=== PATIENT | female | born 1965 | race African-American/Black ===

== ENCOUNTER 2016-11-02 15:07 | Emergency (ER) | payer OTHER ==
[~2016-11-02] VITALS: Ht 162.6 cm; Wt 90.7 kg
[~2016-11-02 15:07] MED LIST: ALBUTEROL0.09 MG/A1 INH; AMOXIL500 MG PO; BACTRIM DS 8001 TAB PO; BENZONATATE200 MG PO; BLM PO; FLEXERIL10 MG PO; FLONASE120 SPRAY/ NASB; HYDRODIURIL 2525 MG PO; IBU800 MG PO; PEN-VK500 MG PO; PERCOCET 325 MG1 TA2 PO; PERCOCET 325 MG1 TAB PO; PULMICORT0.25 MG/1 INH/SOL; PYRIDIUM100 MG PO; ROBITUSSIN W/CO10 ML PO; TOPROL XL25 MG PO; TRAMADOL50 MG PO; TRIAMCINOL0.1 %/453 TOP; ZITHROMAX Z-PA250 MG PO
--- NOTE | 2016-11-02 17:17 | ED HAND/WRIST INJURY COMPLAINT ---
History of Present Illness General Chief Complaint: Hand or Wrist Injury Stated Complaint: L HAND NUMBNESS Source: patient Exam Limitations: no limitations Vital Signs & Intake/Output Vital Signs & Intake/Output Vital Signs Date Time Temp Pulse Resp B/P B/P Pulse O2 O2 Flow FiO2 Mean Ox Delivery Rate 11/02 1635 Room Air 11/02 1513 98.6 86 18 115/80 98 Room Air Allergies Coded Allergies: codeine (BAD HEADACHES PER PT 07/29/15) Reconcile Medications Albuterol Sulfate (Albuterol Sulfate Hfa) 0.09 MG/Actuation JAY 2 PUFF INH Q4- 6 PRN PRN SHORTNESS OF BREATH (Reported) 90 MCG PER PUFF Azithromycin (Zithromax Z-Serg) 250 MG TAB 1 PAC PO DAILY INFECTION USE DIRECTED Budesonide (Pulmicort) 0.25 MG/2 ML RES 1 Vial INH/MANINDER BID RESPIRATORY ( Reported) by nebulizer Fluticasone Propionate (Flonase) 120 SPRAY/BOT SPR 2 SPRAY NASB DAILY SINIS CONGESTION Hydrochlorothiazide (Hydrodiuril 25 MG Tab) 25 MG TABLET 1 TAB PO DAILY B/P ( Reported) Ibuprofen (Ibu) 800 MG TAB 1 TAB PO TID PAIN (Reported) LIDO/MAAL/CIERA (Magic Mouthwash) (Lido-Visc2% 30ML/[id number],MAALOX 120ml) 270 ML MUMTAZ 10 ML PO TID PRN Mouth Pain Metoprolol Succinate (Toprol XL) [address] 1 TAB PO DAILY B/P (Reported) Triage Note: 51 YO FEMALE TO ER C/O L HAND NUMBESS ON/OFF FOR 2-3 WEEKS. STATES SHE RECENTLY HAD A PARTIAL THYROIECTOMY IN AUGUST/2016 AND IS WONDERING IF IT HAS SOMETHING TO DO WITH THAT. Triage Nurses Notes Reviewed? yes HPI: 51F PMH RECENT THYROIDECTOMY ON SYNTHROID AND VITAMIN D SUPPLEMENTS PRESENTING WITH 2 WEEKS OF INTERMITTENT LEFT HAND AND FOREARM PARESTHESIA AND NUMBNESS OCCURING IN BRIEF 5-10 SECOND EPISODES SEVERAL TIMES PER DAY. PATIENT REPORTS HER INDEX FINGER IS NUMB AT THIS TIME. Past History Travel History Traveled to [place] past 21 day No Medical History Any Pertinent Medical History? 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 No Review of Systems Review of Systems Constitutional: Reports: see HPI. EENTM: Reports: see HPI. Respiratory: Reports: see HPI. Cardiovascular: Reports: see HPI. GI: Reports: see HPI. Genitourinary: Reports: see HPI. Musculoskeletal: Reports: see HPI. Skin: Reports: see HPI. Neurological/Psychological: Reports: see HPI. Hematologic/Endocrine: Reports: see HPI. Immunologic/Allergic: Reports: see HPI. All Other Systems: Reviewed and Negative Physical Exam Physical Exam General Appearance: well developed/nourished, no apparent distress, alert, awake Head: atraumatic, normal appearance Eyes: Bilateral: normal appearance. Neck: normal inspection, supple, full range of motion Cardiovascular/Respiratory: normal breath sounds, regular rate/rhythm Back: normal inspection, normal range of motion Hand Left: normal inspection, normal range of motion, no evidence of trauma, full strength and range of motion, full sensation, no wrist tenderness Hand Right: normal inspection, normal range of motion Progress Differential Diagnosis: abscess, cellulitis, contusion, compartment syndrome, dislocation, felon, fracture, gout, paronychia, septic arthritis, sprain, tenosynovitis Plan of Care: Orders Procedure Date/time Status Durable Medical Equipment 11/02 180 Active PHOSPHORUS 11/02 171 Complete MAGNESIUM 11/02 1716 Complete COMPREHENSIVE METABOLIC PANEL 11/02 1716 Complete CBC WITHOUT DIFFERENTIAL 11/02 1716 Complete Laboratory Tests 11/02/16 1724: Anion Gap 8, Estimated GFR > 60, BUN/Creatinine Ratio 18.9, Glucose 96, Calcium 9.6, Phosphorus 3.6, Magnesium 1.9, Total Bilirubin 0.4, AST 22, ALT 37, Alkaline Phosphatase 87, Total Protein 7.4, Albumin 4.4, Globulin 3.0, Albumin/ Globulin Ratio 1.5, CBC w Diff NO MAN DIFF REQ, RBC 4.51, MCV 89.2, MCH 29.8, RDW 14.2, MPV 7.5, Gran % 47.8, Lymphocytes % 42.2, Monocytes % 6.5, Eosinophils % 2.8, Basophils % 0.7, Absolute Granulocytes 2.9, Absolute Lymphocytes 2.5, Absolute Monocytes 0.4, Absolute Eosinophils 0.2, Absolute Basophils 0, PUBS MCHC 33.4 Departure Departure Time of Disposition: 1809 Disposition: HOME OR SELF CARE Condition: Stable Clinical Impression Primary Impression: Carpal tunnel syndrome of left wrist Referrals: TIANA WAGGONER APRN (PCP/Family) Additional Instructions: WEAR SPLINT DIRECTED. FOLLOW UP WITH YOUR EXPELLER WORKER. Departure Forms: Customer Survey General Discharge Information
[2016-11-02 17:35] LABS: ABSOLUTE BASOPHIL COUNT 0 /CUMM (0.0-0.2); ABSOLUTE EOSINOPHIL COUNT 0.2 /CUMM (0.0-0.7); ABSOLUTE GRANULOCYTE CT 2.9 /CUMM (1.4-6.5); ABSOLUTE LYMPH COUNT 2.5 /CUMM (1.2-3.4); ABSOLUTE MONOCYTE COUNT 0.4 /CUMM (0.10-0.60); BASOPHIL % 0.7 % (0.0-2.0); EOSINOPHIL % 2.8 % (0-5); GRANULOCYTE % 47.8 % (42.2-75.2); HEMATOCRIT 40.2 % (37-47); MEAN CORPUSCULAR HGB 29.8 PG (27.0-31.0); MEAN CORPUSCULAR HGB CONC 33.4 G/DL (33.0-37.0); MEAN CORPUSCULAR VOLUME 89.2 FL (81.0-99.0); MEAN PLATELET VOLUME 7.5 FL (7.4-10.4); PLATELET COUNT 415 /CUMM (130-400); RBC DISTRIBUTION WIDTH 14.2 % (11.5-14.5); RED BLOOD CELL CT 4.51 /CUMM (4.20-5.40)
[2016-11-02 18:20] VITALS: BP 120/60
== END 2016-11-02 18:33 ==
LOC: ERH 15:07
PROVIDERS: Internal Medicine
DX: G56.02 Carpal tunnel syndrome, left upper limb (principal)

== ENCOUNTER 2017-09-30 16:45 | Emergency (ER) | payer OTHER ==
[~2017-09-30] VITALS: Ht 162.6 cm; Wt 89.4 kg
--- NOTE | 2017-09-30 17:00 | ED DYSPNEA/ASTHMA COMPLAINT ---
History of Present Illness General Chief Complaint: General Adult Stated Complaint: ?SINUS INFECTION,ASTHMA FLARE UP,SORE THROAT Source: patient Exam Limitations: no limitations Vital Signs & Intake/Output Vital Signs & Intake/Output ED Intake and Output 10/01 0000 09/30 1200 Intake Total 120 Output Total Balance 120 Intake, Oral 120 Patient 197 lb Weight Weight Estimated Measurement Method Allergies Coded Allergies: codeine (BAD HEADACHES PER PT 07/29/15) Reconcile Medications Albuterol Sulfate (Albuterol Sulfate Hfa) 0.09 MG/Actuation JAY 2 PUFF INH Q4- 6 PRN PRN SHORTNESS OF BREATH (Reported) 90 MCG PER PUFF Albuterol Sulfate (Proventil Hfa) 90 MCG HFA.AER.AD 2 PUF INH Q4 COUGH Azithromycin (Zithromax Z-Serg) 250 MG TAB 1 PAC PO DAILY INFECTION USE DIRECTED Azithromycin (Zithromax) 250 MG TABLET 1 DP PO AD BRONCHITIS 2 the first day followed by 1 for days 2-5 Benzonatate 200 MG CAPSULE 1 CAP PO TIDPRN COUGH Budesonide (Pulmicort) 0.25 MG/2 ML RES 1 Vial INH/MANINDER BID RESPIRATORY ( Reported) by nebulizer Fluticasone Propionate (Flonase) 120 SPRAY/BOT SPR 2 SPRAY NASB DAILY SINIS CONGESTION Hydrochlorothiazide (Hydrodiuril 25 MG Tab) 25 MG TABLET 1 TAB PO DAILY B/P ( Reported) Ibuprofen (Ibu) 800 MG TAB 1 TAB PO TID PAIN (Reported) LIDO/MAAL/CIERA (Magic Mouthwash) (Lido-Visc2% 30ML/[id number],MAALOX 120ml) 270 ML MUMTAZ 10 ML PO TID PRN Mouth Pain Metoprolol Succinate (Toprol XL) [address] 1 TAB PO DAILY B/P (Reported) Prednisone (Deltasone) 20 MG TABLET 3 TAB PO DAILY BRONCHITIS Triage Note: RECEIVED 52 YO FEMALE WITH A HX OF ASTHMA, C/O CLEAR PRODUCTIVE COUGH, CONGESTION AND WHEEZING X ONE WEEK. SOME SHORTNES OF BREATH NOTED. Triage Nurses Notes Reviewed? yes Onset: Abrupt Duration: day(s):, constant Timing: recent history Severity: moderate, severe Activities at Onset: none HPI: 52-year-old female comes into the emergency room with complaints of associated cough wheezing some shortness of breath. She also reports some upper respiratory congestion and runny nose and body aches chills. Symptoms been going on for past few days. History of asthma. She also reports some pain in her right rib area. Nothing seems to make the symptoms better or worse. Denies any other associated symptoms. (Seferino Azevedo) Past History Travel History Traveled to [place] past 21 day No Medical History Any Pertinent Medical History? 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 No (Seferino Azevedo) Review of Systems Review of Systems Constitutional: Reports: see HPI. EENTM: Reports: see HPI. Respiratory: Reports: see HPI. Cardiovascular: Reports: see HPI. GI: Reports: no symptoms. Genitourinary: Reports: no symptoms. Musculoskeletal: Reports: see HPI. Skin: Reports: no symptoms. Neurological/Psychological: Reports: no symptoms. Hematologic/Endocrine: Reports: no symptoms. Immunologic/Allergic: Reports: no symptoms. All Other Systems: Reviewed and Negative (Seferino Azevedo) Physical Exam Physical Exam General Appearance: well developed/nourished, alert, awake, mild distress Head: atraumatic Eyes: Bilateral: normal appearance. Ears, Nose, Throat: normal ENT inspection, hearing grossly normal Neck: normal inspection Respiratory: no respiratory distress, decreased breath sounds, rhonchi, wheezing Cardiovascular: regular rate/rhythm Extremities: normal inspection Neurologic/Psych: awake, alert, oriented x 3 Skin: intact, normal color Core Measures ACS in differential dx? No CVA/TIA Diagnosis No Sepsis Present: No Sepsis Focused Exam Completed? No (Seferino Azevedo) Progress Differential Diagnosis: asthma, AMI, bronchitis, COPD, musculoskeletal pain, pulmonary embolism, pneumonia Plan of Care: Orders Procedure Date/time Status TROPONIN LEVEL 09/30 1658 Complete COMPREHENSIVE METABOLIC PANEL 09/30 165 Complete CBC WITHOUT DIFFERENTIAL 09/30 1658 Complete EKG 09/30 165 Active Laboratory Tests 09/30/17 1715: Anion Gap 12, Estimated GFR > 60, BUN/Creatinine Ratio 20.0, Glucose 98, Calcium 9.5, Total Bilirubin 0.6, AST 21, ALT 33, Alkaline Phosphatase 85, Troponin I < 0.01, Total Protein 7.3, Albumin 4.3, Globulin 3.0, Albumin/Globulin Ratio 1.4, CBC w Diff NO MAN DIFF REQ, RBC 4.56, MCV 87.6, MCH 29.9, MCHC 34.1, RDW 14.5, MPV 7.3 L, Gran % 54.0, Lymphocytes % 33.9, Monocytes % 7.1, Eosinophils % 4.5, Basophils % 0.5, Absolute Granulocytes 3.4, Absolute Lymphocytes 2.1, Absolute Monocytes 0.4, Absolute Eosinophils 0.3, Absolute Basophils 0 Diagnostic Imaging: Viewed by Me: Radiology Read. Discussed w/RAD: Radiology Read. Radiology Impression: PATIENT: ORLIN HUTSON PRESENT AGE: 52 PATIENT ACCOUNT NO: [id number] : 65 LOCATION: [facility] ORDERING PHYSICIAN: Seferino PITTS SERVICE DATE: 09/30/17 EXAM TYPE: RAD - XRY-CHEST XRAY, TWO VIEWS EXAMINATION: CHEST 2 VIEWS CLINICAL INFORMATION: Cough , shortness of breath, wheezing. COMPARISON: 06/12/2015. TECHNIQUE: PA and lateral views of the chest were obtained. FINDINGS: The cardiac silhouette is not enlarged. The mediastinal and hilar contours are unremarkable. There are neither pleural effusions nor pneumothoraces. There are no consolidations. The lungs are mildly hyperinflated. The osseous structures are unremarkable. IMPRESSION: No evidence for acute disease. Mild lung hyperinflation. DICTATED BY : Zhou Haskins MD DATE/TIME DICTATED:09/30/171729 AUTO RADIATOR MECHANIC:EDITH DATE/TIME TRANSCRIBED:09/30/171729 CONFIDENTIAL, DO NOT COPY WITHOUT APPROPRIATE AUTHORIZATION. <Electronically signed in Other Vendor System> SIGNED BY: Zhou Haskins MD 09/30/176 Initial ED EKG: normal sinus rhythm, rate (7070), nonspecific ST T wave chg Prior EKG: unchanged (NO SIGNIFICANT CHNAGES) Comments: 09/30/2017 7:28:21 PM Patient feels better after nebulizer treatment and prednisone. Symptoms are most consistent with bronchitis. Return if any concerns worsening symptoms. Understands and agrees with plan of care. Reevaluated multiple times. At this time no suspicion for pulmonary embolism. No tachycardia. No hemoptysis. No leg swelling. Low probability well's criteria. (Seferino Azevedo) Departure Departure Disposition: HOME OR SELF CARE Condition: Stable Clinical Impression Primary Impression: Bronchitis Referrals: Herminia Majano APRN (PCP/Family) Additional Instructions: Take prednisone, Z-Serg, Tessalon Perles, albuterol prescribed. Follow-up with her doctor. Return if any concerns worsening symptoms. Please go over all results of today's visit with your primary care doctor. Contact your primary care doctor to let them know you were here in the emergency room. There may be nonspecific findings which may not be related to your visit today here in the emergency room but may require further evaluation and chronic monitoring by your primary care doctor. If you had a laceration today the chance of foreign body always remains. You should follow-up with your primary care doctor for recheck in 3-5 days for a wound check. If you had an x-ray done there is a chance that a fracture could have been missed on initial read and you should follow-up with your primary care doctor for repeat x-rays if symptoms persist. If your blood pressure was elevated here in the emergency room please have rechecked by [facility] primary care doctor within the next 48. If you were prescribed a narcotic here in the emergency room or any type of controlled substances you're not allowed to drive while taking this medication or operate any type of heavy machinery. Narcotics can make you feel lightheaded dizziness nausea and can cause constipation. You may need to warp picker a stool softener. Thank you for choosing [facility] emergency room. Please return to the emergency room immediately if you have any other concerns worsening of symptoms. Departure Forms: Customer Survey General Discharge Information Prescriptions: Current Visit Scripts Prednisone (Deltasone) 3 TAB PO DAILY #12 TAB Azithromycin (Zithromax) 1 DP PO AD #6 TAB 2 the first day followed by 1 for days 2-5 Albuterol Sulfate (Proventil Hfa) 2 PUF INH Q4 #1 INHAL Benzonatate 1 CAP PO TIDPRN #30 CAP (Seferino Azevedo) PA/HRIS ADMINISTRATOR Co-Sign Statement Statement: ED Attending supervision documentation- [] I saw and evaluated the patient. I have also reviewed all the pertinent lab results and diagnostic results. I agree with the findings and the plan of care as documented in the PA's/HRIS ADMINISTRATOR's documentation. [X] I have reviewed the ED Record and agree with the PA's/HRIS ADMINISTRATOR's documentation. [] Additions or exceptions (if any) to the PAs/HRIS ADMINISTRATOR's note and plan are summarized below: [] (Malik MOBLEY,Sixto Fung) Critical Care Note Critical Care Note Critical Care Time: non-applicable (Fernando PITTS,Seferino)
[2017-09-30] MEDS ORDERED: PROVENTIL HFA6.7 GM INH (17:01)
[2017-09-30] MEDS ORDERED: ZITHROMAX250 M2 PO (17:01)
[2017-09-30] MEDS ORDERED: DELTASONE20 MG PO (17:01)
[2017-09-30] MEDS ORDERED: BENZONATATE200 M1 PO (17:01)
[2017-09-30 17:28] LABS: ABSOLUTE BASOPHIL COUNT 0 /CUMM (0.0-0.2); ABSOLUTE EOSINOPHIL COUNT 0.3 /CUMM (0.0-0.7); ABSOLUTE GRANULOCYTE CT 3.4 /CUMM (1.4-6.5); ABSOLUTE LYMPH COUNT 2.1 /CUMM (1.2-3.4); ABSOLUTE MONOCYTE COUNT 0.4 /CUMM (0.10-0.60); BASOPHIL % 0.5 % (0.0-2.0); EOSINOPHIL % 4.5 % (0-5); MEAN CORPUSCULAR HGB 29.9 PG (27.0-31.0); MEAN CORPUSCULAR HGB CONC 34.1 G/DL (33.0-37.0); MEAN CORPUSCULAR VOLUME 87.6 FL (81.0-99.0); MEAN PLATELET VOLUME 7.3 FL (7.4-10.4); PLATELET COUNT 432 /CUMM (130-400); RBC DISTRIBUTION WIDTH 14.5 % (11.5-14.5); RED BLOOD CELL CT 4.56 /CUMM (4.20-5.40); WHITE BLOOD CELL COUNT 6.3 /CUMM (4.8-10.8)
--- NOTE | 2017-09-30 17:34 | RADIOLOGY REPORT ---
EXAMINATION: CHEST 2 VIEWS CLINICAL INFORMATION: Cough, shortness of breath, wheezing. COMPARISON: 06/12/2015. TECHNIQUE: PA and lateral views of the chest were obtained. FINDINGS: The cardiac silhouette is not enlarged. The mediastinal and hilar contours are unremarkable. There are neither pleural effusions nor pneumothoraces. There are no consolidations. The lungs are mildly hyperinflated. The osseous structures are unremarkable. IMPRESSION: No evidence for acute disease. Mild lung hyperinflation.
[2017-09-30 18:22] VITALS: BP 122/78
== END 2017-09-30 18:50 ==
LOC: ERH 16:45
PROVIDERS: Physician Assistant Medical
DX: J40 Bronchitis, not specified as acute or chronic (principal); F17.210 Nicotine dependence, cigarettes, uncomplicated
CPT/HCPCS: 71046; 93005; 93010

== ENCOUNTER 2017-12-07 19:48 | Observation (INO) | payer OTHER ==
[~2017-12-07] VITALS: Ht 162.6 cm; Wt 81.6 kg
[~2017-12-07 19:48] MED LIST changes: -ALBUTEROL0.09 MG/A1 INH; +BENZONATATE200 M1 PO; +DELTASONE20 MG PO; +PROAIR HFA8.5 GM INH; +PROVENTIL HFA6.7 GM INH; -PULMICORT0.25 MG/1 INH/SOL; +PULMICORT0.25 MG/3 INH/SOL; -TOPROL XL25 MG PO; +TOPROL XL50 M1 PO; +ZITHROMAX250 M2 PO
--- NOTE | 2017-12-07 20:38 | ED GENERAL ADULT ---
History of Present Illness General Chief Complaint: General Adult Stated Complaint: EPISTAXIS, BLACK STOOL PER PT Source: patient Exam Limitations: no limitations Vital Signs & Intake/Output Vital Signs & Intake/Output Vital Signs Date Time Temp Pulse Resp B/P B/P Pulse O2 O2 Flow FiO2 Mean Ox Delivery Rate 12/08 0113 98.0 77 20 142/80 93 12/07 2255 96.2 86 18 129/76 98 Room Air 12/07 2137 81 139/69 12/07 1954 96.6 99 20 113/75 98 Room Air ED Intake and Output 12/08 0000 12/07 1200 Intake Total Output Total Balance Patient 180 lb Weight Allergies Coded Allergies: codeine (BAD HEADACHES PER PT 07/29/15) Reconcile Medications Albuterol Sulfate (Albuterol Sulfate Hfa) 0.09 MG/Actuation JAY 2 PUFF INH Q4- 6 PRN PRN SHORTNESS OF BREATH (Reported) 90 MCG PER PUFF Albuterol Sulfate (Proventil Hfa) 90 MCG HFA.AER.AD 2 PUF INH Q4 COUGH Azithromycin (Zithromax Z-Serg) 250 MG TAB 1 PAC PO DAILY INFECTION USE DIRECTED Azithromycin (Zithromax) 250 MG TABLET 1 DP PO AD BRONCHITIS 2 the first day followed by 1 for days 2-5 Benzonatate 200 MG CAPSULE 1 CAP PO TIDPRN COUGH Budesonide (Pulmicort) 0.25 MG/2 ML RES 1 Vial INH/MANINDER BID RESPIRATORY ( Reported) by nebulizer Fluticasone Propionate (Flonase) 120 SPRAY/BOT SPR 2 SPRAY NASB DAILY SINIS CONGESTION Hydrochlorothiazide (Hydrodiuril 25 MG Tab) 25 MG TABLET 1 TAB PO DAILY B/P ( Reported) Ibuprofen (Ibu) 800 MG TAB 1 TAB PO TID PAIN (Reported) LIDO/MAAL/CIERA (Magic Mouthwash) (Lido-Visc2% 30ML/[id number],MAALOX 120ml) 270 ML MUMTAZ 10 ML PO TID PRN Mouth Pain Metoprolol Succinate (Toprol XL) [address] 1 TAB PO DAILY B/P (Reported) Prednisone (Deltasone) 20 MG TABLET 3 TAB PO DAILY BRONCHITIS Triage Note: PT HERE WITH C/O NOSE BLEEDS AND "BLACK STOOLS". PT REPORTS FATIGUE AND LOWER ABD CRAMPS. PT HX OF HTN. Triage Nurses Notes Reviewed? yes Onset: Gradual Duration: day(s): Timing: recent history Injury Environment: home Severity: moderate HPI: 52YO FEMALE with hx of HTN presents to ED complaining of intermittent epistaxis x 4 days. Epistaxis has been from right nostril only. Patient also reports black colored stools for 4 days. Patient reports feeling very tired and fatigued recently. SHe states she was walking earlier today and felt exhausted. Patient denies nose injury, abdominal pain, dyspnea, diarrhea, constipation, fevers. (Marisela Keene) Past History Travel History Traveled to [place] past 21 day No Medical History Any Pertinent Medical History? 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 No (Marisela Keene) Review of Systems Review of Systems Constitutional: Reports: see HPI. EENTM: Reports: see HPI. Respiratory: Reports: no symptoms. Cardiovascular: Reports: no symptoms. GI: Reports: see HPI. Genitourinary: Reports: no symptoms. Musculoskeletal: Reports: no symptoms. Skin: Reports: no symptoms. Neurological/Psychological: Reports: no symptoms. Hematologic/Endocrine: Reports: no symptoms. Immunologic/Allergic: Reports: no symptoms. All Other Systems: Reviewed and Negative (Marisela Keene) Physical Exam Physical Exam General Appearance: well developed/nourished, no apparent distress, alert, awake Head: atraumatic, normal appearance Eyes: Bilateral: normal appearance. Ears, Nose, Throat: normal pharynx, hearing grossly normal, blood in right nostril however no active bleeding Neck: normal inspection, supple, full range of motion Respiratory: normal breath sounds, no respiratory distress, lungs clear Cardiovascular: regular rate/rhythm Gastrointestinal: normal bowel sounds, soft, non-tender, no organomegaly Rectal: normal exam, heme negative stool Back: normal inspection, normal range of motion Extremities: normal inspection, normal range of motion Neurologic/Psych: awake, alert, oriented x 3 Skin: intact, normal color, warm/dry Core Measures ACS in differential dx? No CVA/TIA Diagnosis: No Sepsis Present: No Sepsis Focused Exam Completed? No (Paola PITTS,Marisela Levine) Progress Differential Diagnoses I considered the following diagnoses in my evaluation of the patient: [ symptomatic anemia, GI bleeding, epistaxis, electrolyte abnormality] Plan of Care: Orders Procedure Date/time Status Regular Diet 12/08 B Active CBC WITHOUT DIFFERENTIAL 12/08 599 Active BASIC ELECTROLYTES PLUS BUN&CR 12/08 599 Active Vital Signs 12/08 100 Active Teach/Educate 12/08 100 Active Pain Treatment and Response 12/08 100 Active Nutritional Intake, Monitor 12/08 100 Active Isolation 12/08 100 Active Intake & Output 12/08 100 Active Patient Care Conference 12/08 100 Active Activity/Ambulation 12/08 100 Active Pathway - chart 12/08 22 Active CULTURE,STOOL 12/08 22 Active OVA AND PARASITE EXTENDED 12/08 22 Active VTE Mechanical Prophylaxis 12/08 UNK Active Vital Signs 12/08 UNK Active Intake & Output 12/08 UNK Complete Hemoccult 12/08 UNK Active Activity/Ambulation 12/08 UNK Active Patient Data 12/07 2348 Active OXYGEN SETUP (GEN) 12/07 233 Active Saline Lock 12/[address] in observation 12/07 233 Active Vital Signs 12/07 233 Complete Activity/Ambulation 12/07 2333 Complete Code Status 12/07 2333 Active TYPE & SCREEN (NOT X-MATCH) 12/07 214 Active LEUKOCYTE POOR (PACKED CELLS) 12/08 2131 Active Add-on Test (ER Only) 12/07 2129 Active MISTAKE 12/07 2124 Active EKG 12/08 2123 Active THYROID STIMULATING HORMONE 12/07 2021 Complete PARTIAL THROMBOPLASTIN TIME 12/07 2021 Complete PROTHROMBIN TIME 12/07 2021 Complete FREE T4 12/07 2021 Complete COMPREHENSIVE METABOLIC PANEL 12/07 2021 Complete CBC WITHOUT DIFFERENTIAL 12/07 2021 Complete Intake & Output 12/07 2006 Active Current Medications Sig/Aziza Start time Last Medication Dose Stop Time Status Admin Acetaminophen 650 MG Q6P PRN 12/08 29 AC (Tylenol) Potassium Chloride 40 MEQ .Q10H 12/08 29 AC (KCL 40MEQ in D5W 1000ml) Dextrose/Water 1,000 ML (D5W 1000) Laboratory Tests 12/07/172035: Anion Gap 7, Estimated GFR > 60, BUN/Creatinine Ratio 26.7 H, Glucose 118 H, Calcium 9.4, Total Bilirubin 0.2, AST 19, ALT 33, Alkaline Phosphatase 56, Total Protein 5.8 L, Albumin 3.5, Globulin 2.3, Albumin/Globulin Ratio 1.5, TSH 1.700 , Free T4 0.73, PT 10.7, INR 0.98, APTT 31, CBC w Diff NO MAN DIFF REQ, RBC 2.92 L, MCV 89.0, MCH 29.7, MCHC 33.4, RDW 14.5, MPV 6.9 L, Gran % 49.8, Lymphocytes % 40.6, Monocytes % 7.3, Eosinophils % 2.0, Basophils % 0.3, Absolute Granulocytes 3.3, Absolute Lymphocytes 2.7, Absolute Monocytes 0.5, Absolute Eosinophils 0.1, Absolute Basophils 0 Microbiology 12/08 22 STOOL: Ova and Parasite Macroscopic Exam - ORD 12/08 22 STOOL: Stool Culture - ORD Patient's H/H is 8.7/25.9, compared to her baseline this is an acute drop. Previous labs from 2 months ago show H/H of 13.6/40. Patient is currently symptomatic. Hypokalmeia treated with oral potassium replacement. Spoke with Dr. Vidales who saw and evaluated the patient and recommends inpatient observation. Initial ED EKG: sinus rhythm @80bpm, first defree AV block, nonspecific ST changes Prior EKG: unchanged (09/30/17) (Paola PITTS,Marisela Levine) Departure Departure Disposition: STILL A PATIENT Condition: Stable Clinical Impression Primary Impression: Symptomatic anemia Secondary Impressions: Epistaxis, Hypokalemia Referrals: Herminia Majano APRN (PCP/Family) Departure Forms: Customer Survey General Discharge Information Observation Note Spoke With: Flash MOBLEY,Romana Physician Advisor Notified: ANA GRAY DO Place Patient In: Non-ED OBS Care Area Rationale for Observation: My rational for observation is as follows [symptomatic anemia with history of epistaxis and black stools requiring IV blood transfusion, hypokalemia requiring potassium replacement, repeat electrolytes, repeat CBCs, premature discharge medically unsafe]. (Paola PITTS,Marisela Levine) PA/ASSISTANT ART DIRECTOR Co-Sign Statement Statement: ED Attending supervision documentation- x I saw and evaluated the patient. I have also reviewed all the pertinent lab results and diagnostic results. I agree with the findings and the plan of care as documented in the PA's/ASSISTANT ART DIRECTOR's documentation. Epistaxis, black stools, weakness: symptomatic anemia, transfuse PRBC [] I have reviewed the ED Record and agree with the PA's/ASSISTANT ART DIRECTOR's documentation. [] Additions or exceptions (if any) to the PAs/ASSISTANT ART DIRECTOR's note and plan are summarized below: [] (Giselle MOBLEY,Keaton) Critical Care Note Critical Care Note Critical Care Time: 30-74 min (Paola PITTS,Marisela Levine)
[2017-12-07 20:44] LABS: ABSOLUTE BASOPHIL COUNT 0 /CUMM (0.0-0.2); ABSOLUTE EOSINOPHIL COUNT 0.1 /CUMM (0.0-0.7); ABSOLUTE GRANULOCYTE CT 3.3 /CUMM (1.4-6.5); ABSOLUTE LYMPH COUNT 2.7 /CUMM (1.2-3.4); ABSOLUTE MONOCYTE COUNT 0.5 /CUMM (0.10-0.60); BASOPHIL % 0.3 % (0.0-2.0); GRANULOCYTE % 49.8 % (42.2-75.2); HEMATOCRIT 25.9 % (37-47); MEAN CORPUSCULAR HGB 29.7 PG (27.0-31.0); MEAN CORPUSCULAR HGB CONC 33.4 G/DL (33.0-37.0); MEAN PLATELET VOLUME 6.9 FL (7.4-10.4); PLATELET COUNT 373 /CUMM (130-400); RBC DISTRIBUTION WIDTH 14.5 % (11.5-14.5); RED BLOOD CELL CT 2.92 /CUMM (4.20-5.40); WHITE BLOOD CELL COUNT 6.5 /CUMM (4.8-10.8)
[2017-12-07 20:53] LABS: PT 10.7 SEC (9.4-12.5); PTT 31 SEC (25-37)
--- NOTE | 2017-12-07 23:51 | History & Physical ---
Oskar Jim 12/07/17 8861: General Information and HPI MD Statement: I have seen and personally examined ORLIN HUTSON and documented this H&P. The patient is a 52 year old F who presented with a patient stated chief complaint of [nose bleed since tuesday]. Source of Information: patient, old records History of Present Illness: Orlin Hutson is a 52-year-old female with PMh of HTN, childhood intermittent nose bleed however no coagulopathy diagnosed, Asthma, Fibroid s/p hysterectomy w / no period since, dela cruz-diverticulosis w/ internal hemorrhoid by colonoscopy in 2015 (Dr. Mahoney), presented to ER w/ intermittent epitaxis x 2 days and black stool x 3 days w/o obvious BRBPR. Patient states that she was woken on Tuesday morning, December 05, by nosebleed, which would clot and then she would wind up swallowing or blowing the clots out of her nose and would rebleed. States that she also started experiencing black stools on Tuesday night after going to a barbecue in [place], where she ate chicken and fish, states that she thought that the charcoal that was used to grow these items colored her stool. Also complains of painless blood on the toilet paper which is been going on for 1-1/2 weeks. Patient states that she is not aware of any platelet or bleeding disorders, has had dental procedures in the past without overt bleeding, is not on anticoagulation, denied any fevers or chills, although does have a sick contact with an upper respiratory infection on Tuesday. Denies any hematuria, denies any lower extremity edema, denies chest pain or palpitations or nausea/ vomiting/diarrhea. States that she recently discontinued using Flonase several weeks prior. 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 Exam & Diagnostic Data Last 24 Hrs of Vital Signs/I&O Vital Signs Date Time Temp Pulse Resp B/P B/P Pulse O2 O2 Flow FiO2 Mean Ox Delivery Rate 12/08 0455 93 Room Air 12/08 0113 98.0 77 20 142/80 93 12/07 2255 96.2 86 18 129/76 98 Room Air 12/07 2137 81 139/69 12/07 1954 96.6 99 20 113/75 98 Room Air Intake & Output 12/08 0800 12/08 0000 12/07 1600 Intake Total Output Total Balance Patient 180 lb 180 lb Weight Physical Exam General Appearance Alert, Oriented X3, Cooperative, No Acute Distress Skin No Rashes Skin Temp/Moisture Exam: Warm/Dry HEENT Mucous Membr. moist/pink, No blood noted to nasal turbinates, mild erythema, mild turbinate hypertrophy Cardiovascular Regular Rate, Normal S1, Normal S2 Lungs Clear to Auscultation, Normal Air Movement Abdomen Soft, No Tenderness Neurological Normal Speech, Strength at 5/5 X4 Ext, Sensation Intact Extremities No Edema, Normal Pulses Last 24 Hrs of Labs/Stiven: Laboratory Tests 12/07/172035: Anion Gap 7, Estimated GFR > 60, BUN/Creatinine Ratio 26.7 H, Glucose 118 H, Calcium 9.4, Total Bilirubin 0.2, AST 19, ALT 33, Alkaline Phosphatase 56, Total Protein 5.8 L, Albumin 3.5, Globulin 2.3, Albumin/Globulin Ratio 1.5, TSH 1.700 , Free T4 0.73, PT 10.7, INR 0.98, APTT 31, CBC w Diff NO MAN DIFF REQ, RBC 2.92 L, MCV 89.0, MCH 29.7, MCHC 33.4, RDW 14.5, MPV 6.9 L, Gran % 49.8, Lymphocytes % 40.6, Monocytes % 7.3, Eosinophils % 2.0, Basophils % 0.3, Absolute Granulocytes 3.3, Absolute Lymphocytes 2.7, Absolute Monocytes 0.5, Absolute Eosinophils 0.1, Absolute Basophils 0 Microbiology 12/08 22 STOOL: Ova and Parasite Macroscopic Exam - ORD 12/08 22 STOOL: Stool Culture - ORD Assessment/Plan Assessment: Ms. Hutson is a 52yo F w/ PMh of HTN, childhood intermittent nose bleed however no coagulopathy diagnosed, Asthma, Fibroid s/p hysterectomy w/ no period since, dela cruz-diverticulosis w/ internal hemorrhoid by colonoscopy in 2015 (Dr. Mahoney), presented to ER w/ epistaxis and low hb (8.7), under observation. Problem list/Assessment/Hospital Course: #Symptomatic Normocytic anemia 2/2 epistaxis and/or questionable GI bleed, w/ tachycardia on admission #Black stool, with rectal exam guaiac negative, could be from swallowing of epistaxis, pending further eval #Epistaxis, not active at this point, packed #Hypokalemia 2/2 blood loss?, asymptomatic. No longer on HCTZ (took off by Dr. Tolbert) #PMH of HTN, childhood intermittent nose bleed however no coagulopathy diagnosed , Asthma, Fibroid s/p hysterectomy w/ no period since, dela cruz-diverticulosis w/ internal hemorrhoid #Epistaxis Rocket -Type and cross, will transfuse if Hgb dropped <7 in the AM lab. #Black stools #Asthma - TRC/Neb for underlying asthma, not in exacerbation. - Monitor for any signs of active bleeding/more episodes of black stool. Guaiac all stools. #HypoK -Will replete orally DVT prophylaxis ALPS only Regular Diet IV Access: Peripheral IV Full Code As Ranked By This Provider Problem List: 1. Epistaxis 2. Hypokalemia Core Measures/Misc (01/23) Acute Coronary Syndrome ACS Diagnosis: No Congestive Heart Failure Congestive Heart Failure Diagnosis No Cerebrovascular Accident CVA/TIA Diagnosis: No VTE (View Protocol) VTE Risk Factors Age>40 No Mechanical VTE Prophylaxis d/t N/A MechProphylax Ordered No VTE Pharm Prophylaxis d/t Bleeding (Active) Sepsis (View protocol) Sepsis Present: No If YES complete Sepsis Event Note If YES complete Sepsis Event Note Stacy Viveros 12/08/17 0010: Core Measures/Misc (01/23) Sepsis (View protocol) If YES complete Sepsis Event Note If YES complete Sepsis Event Note Resident Review Statement Resident Statement: examined this patient, discussed with post graduate intern, agreed with post graduate intern, discussed with family, reviewed EMR data (avail), discussed with nursing , discussed with case mgmt, reviewed images, amended to note Other Findings: Ms. Hutson is a 52yo F w/ PMh of HTN, childhood intermittent nose bleed however no coagulopathy diagnosed, Asthma, Fibroid s/p hysterectomy w/ no period since, dela cruz-diverticulosis w/ internal hemorrhoid by colonoscopy in 2015 (Dr. Mahoney), presented to ER w/ intermittent epitaxis x 1 day and black stool x 1 day w/o obvious BRBPR. During our clinical interaction, patient denied recent travel/sick contacts, fever/lightheadedness/diaphoresis/night sweat/weight change/cough/SOB/Chest Pain /Palpitation/Ab pain/urinary abnormality, or other skin/musculoskeletal/ neurological/mood disorders, or dietary/appetite change. -Smokin/2 PPD x 35 yrs -Alcohol: denied -Rec Drugs: denied On admission, Vitals: Stable afebrile, tachycardia 99->86, RR 20, BP 129/76, 98% on room air Physical exam as above, with some fresh blood in nasal cavity however not active bleeding. Packing applied. -CBC: WBC 6.5, H/H8 0.7/25.9 decreased from baseline of and 09/2017, PLT 376 3, PT/INR WNL -CMP: Hypokalemia 3.0, otherwise unremarkable -Guaiac-negative in the ER -EKG: NSR w/o significant ST-T abnormalities, unchanged from previous. -Last Echo: Grossly normal echocardiograph in 06/[address] Peterson -Interventions in ER: K-Paola 40 mEq 1 Problem list/Assessment/Hospital Course: #Symptomatic Normocytic anemia 2/2 epistaxis and/or questionable GI bleed, w/ tachycardia on admission #Black stool, with rectal exam guaiac negative, could be from swallowing of epistaxis, pending further eval #Epistaxis, not active at this point, packed #Hypokalemia 2/2 blood loss?, asymptomatic. No longer on HCTZ (took off by Dr. Tolbert) #PMH of HTN, childhood intermittent nose bleed however no coagulopathy diagnosed , Asthma, Fibroid s/p hysterectomy w/ no period since, dela cruz-diverticulosis w/ internal hemorrhoid - Placed in observation on GM - Vitals per protocol, monitor I&O per protocol. - TRC/Neb for underlying asthma, not in exacerbation. Patient was on ioana on Proair inhaler and Symbicort Nebulizer at home. - Monitor for any signs of active bleeding/more episodes of black stool. Guaiac all stools. - Stool culture/OVA as her symptoms started with Tuesday BBQ, however no other ppl got sick around her. - Continue home meds. - Type and cross, will transfuse if Hgb dropped <7 in the AM lab. - Recheck CBC in the AM - Replete K and recheck. - Pain per pathway. DVT prophylaxis ALPS only Regular Diet IV Access: Peripheral IV Full Code Flash MOBLEY,[facility] 12/08/17 0101: General Information and HPI Allergies/Medications Home Med list Albuterol Sulfate (Proair Hfa) 90 MCG HFA.AER.AD 2 PUF INH Q4-6 PRN PRN SHORTNESS OF BREATH (Reported) Amlodipine Besylate 10 MG TABLET 1 TAB PO DAILY BP (Reported) Benzonatate 200 MG CAPSULE 1 CAP PO TIDPRN COUGH Budesonide (Pulmicort) 0.25 MG/2 ML AMPUL.NEB 1 Vial INH/MANINDER BID BREATHING PROBLEMS (Reported) Fluticasone Propionate 50 MCG/ACTUATION SPRAY.SUSP 2 SPRAY NASB DAILY ALLERGIES (Reported) Metoprolol Succ XL (Toprol Xl) 50 MG TAB 1 TAB PO DAILY BP (Reported) Core Measures/Misc (01/23) Sepsis (View protocol) If YES complete Sepsis Event Note If YES complete Sepsis Event Note Attending MD Review Statement Attending Statement Attending MD Statement: examined this patient, discuss w/resident/PA/MEDICAL OFFICE SUPERVISOR, agreed w/resident/PA/MEDICAL OFFICE SUPERVISOR Attending Assessment/Plan: This is a 52-year-old lady with a past medical history significant for allergic rhinitis, chronic Flonase use however has discontinued this over the past 3-4 weeks presenting to the hospital for evaluation of epistaxis. She states that she has had recurrent epistaxis in the past however not as severe as today. She mentioned that the bleeding was so bad that she felt like she swallowed a significant amount of blood. Since arrival to the emergency department the bleeding has subsided however she was incidentally found to have anemia on her CBC, however, she denied any shortness of breath chest pain or dizziness. Patient denied any family history of bleeding disorders. She does endorse a history of uterine fibroids however denies any menorrhagia. Problem list: Epistaxis likely secondary to chronic Flonase usage Anemia likely secondary to above Plan: Nasal packing with Afrin. If bleeding is not controlled we will place a Rhino Rocket Repeat CBC in the morning if hemoglobin is less than 7 we will transfuse
[2017-12-08 01:13] VITALS: BP 142/80
[2017-12-08] MEDS ORDERED: AMLODIPINE BESY10 M1 PO (03:39)
[2017-12-08 06:42] VITALS: BP 130/84
[2017-12-08] MEDS ORDERED: FLUTICASONE PRO16 GM NASB (07:42)
[2017-12-08 08:28] LABS: ABSOLUTE BASOPHIL COUNT 0 /CUMM (0.0-0.2); ABSOLUTE EOSINOPHIL COUNT 0.1 /CUMM (0.0-0.7); ABSOLUTE GRANULOCYTE CT 2.2 /CUMM (1.4-6.5); ABSOLUTE LYMPH COUNT 2.2 /CUMM (1.2-3.4); ABSOLUTE MONOCYTE COUNT 0.3 /CUMM (0.10-0.60); BASOPHIL % 0.5 % (0.0-2.0); EOSINOPHIL % 2.8 % (0-5); GRANULOCYTE % 44.7 % (42.2-75.2); MEAN CORPUSCULAR HGB 30.4 PG (27.0-31.0); MEAN CORPUSCULAR HGB CONC 33.9 G/DL (33.0-37.0); MEAN CORPUSCULAR VOLUME 89.6 FL (81.0-99.0); MEAN PLATELET VOLUME 7.7 FL (7.4-10.4); PLATELET COUNT 341 /CUMM (130-400); RBC DISTRIBUTION WIDTH 14.5 % (11.5-14.5); RED BLOOD CELL CT 2.68 /CUMM (4.20-5.40); WHITE BLOOD CELL COUNT 4.9 /CUMM (4.8-10.8)
--- NOTE | 2017-12-08 14:10 | PN- Housestaff ---
FlashGilmer 12/08/17 1407: Subjective Follow-up For: Nose bleed since three days Complaints: pain scale (0-10) (Feeling weak) Subjective: Patient examine and seen on bed . She is sitted in her chair. No active issue right now except she is feeling weak and concerned about blood trasfusion. She denies, fever, chil, chest pain. cough, palpitaion. Review of Systems Constitutional: Denies: see HPI. Objective Last 24 Hrs of Vital Signs/I&O Vital Signs Date Time Temp Pulse Resp B/P B/P Pulse O2 O2 Flow FiO2 Mean Ox Delivery Rate 12/08 2042 78 124/76 12/08 1934 96 Room Air 12/08 1527 98.4 74 20 128/78 94 Nasal Cannula 12/08 1044 Room Air Room Air 12/08 0845 72 130/84 12/08 0642 98.4 72 20 130/84 93 12/08 0455 93 Room Air 12/08 0113 98.0 77 20 142/80 93 12/07 2255 96.2 86 18 129/76 98 Room Air Intake & Output 12/08 1600 12/08 0800 12/08 0000 Intake Total 240 Output Total Balance 240 Intake, Oral 240 Number 3 Bowel Movements Patient 180 lb 180 lb Weight Physical Exam General Appearance: Alert, Oriented X3, Cooperative, No Acute Distress Assessment/Plan Assessment: 52-year-old female with past medical history of hypertension childhood intermittent nosebleed, allergic rhinitis, asthma, fibroids status post hysterectomy, pandiverticulosis, internal hemorrhoids by colonoscopy in 2016, allergic rhinitis presented to hospital for evaluation of epistaxis. Problem list; -Epistaxis seemed like due to secondary topical steroid use for allergic rhinitis. -Diarrhea with Cryptosporidium positive stool culture. -Anemia due to acute blood loss due to epistaxis. Plan: Vitals monitoring Observe for epistaxis, any upper GI bleed Advised PPI Serial CBC monitoring and if Hb is droping than 7g/dl please transfuse RCC GI/DVT prophylaxis Full code Soft healthy diet Supportive treatment for Cryptosporidium diarrhea. Case discussed with ID specialist. If there is recurrent upper GI bleed called gastro consult. Problem List: 1. Symptomatic anemia Pain Ratin Pain Location: no pain Pain Goal: Remain pain free Pain Plan: no pain Tomorrow's Labs & Rationales: cbc Maude Jarquin 12/08/17 1422: Attending MD Review Statement Attending Statement Attending MD Statement: examined this patient, discuss w/resident/PA/INTERMEDIATE PROJECT MANAGER, agreed w/resident/PA/INTERMEDIATE PROJECT MANAGER, discussed with family, reviewed EMR data (avail), discussed with nursing, discussed with case mgmt, reviewed images, amended to note Attending Assessment/Plan: 52-year-old lady with a past medical history significant for allergic rhinitis presenting to the hospital for evaluation of epistaxis. Guaic positive. Few episodes of loose stools since morning. Micro suggestive of cryptosporidium in stool. Problem list: 1. Epistaxis likely secondary to chronic Flonase usage 2. Anemia likely acute blood loss and component of infectious etiology 3. Diarrhea with Cryptosporidium in stool 4. H/o fibroid s/p removal 5. Colonscopy 2015 Plan: Supportive care for epistaxis Serial cbc monitoring and transfuse as needed. abx for abnormal stool/crytposporidium If cbc drops consider GI consult, PPI daily. gi/dvt prophyalxis full code.
[2017-12-08 15:27] VITALS: BP 128/78
[2017-12-08 17:23] LABS: ABSOLUTE BASOPHIL COUNT 0 /CUMM (0.0-0.2); ABSOLUTE EOSINOPHIL COUNT 0.1 /CUMM (0.0-0.7); ABSOLUTE GRANULOCYTE CT 2.7 /CUMM (1.4-6.5); ABSOLUTE LYMPH COUNT 2.6 /CUMM (1.2-3.4); ABSOLUTE MONOCYTE COUNT 0.4 /CUMM (0.10-0.60); BASOPHIL % 0.8 % (0.0-2.0); HEMATOCRIT 24.9 % (37-47); MEAN CORPUSCULAR HGB 30.4 PG (27.0-31.0); MEAN CORPUSCULAR HGB CONC 33.9 G/DL (33.0-37.0); MEAN CORPUSCULAR VOLUME 89.9 FL (81.0-99.0); MEAN PLATELET VOLUME 7.9 FL (7.4-10.4); PLATELET COUNT 354 /CUMM (130-400); RBC DISTRIBUTION WIDTH 14.8 % (11.5-14.5); RED BLOOD CELL CT 2.77 /CUMM (4.20-5.40); WHITE BLOOD CELL COUNT 5.8 /CUMM (4.8-10.8)
[2017-12-08 22:33] VITALS: BP 125/84
[2017-12-09 06:46] VITALS: BP 114/70
[2017-12-09 07:49] VITALS: BP 114/70
[2017-12-09 08:08] LABS: ABSOLUTE BASOPHIL COUNT 0 /CUMM (0.0-0.2); ABSOLUTE EOSINOPHIL COUNT 0.1 /CUMM (0.0-0.7); ABSOLUTE GRANULOCYTE CT 3.1 /CUMM (1.4-6.5); ABSOLUTE LYMPH COUNT 2.2 /CUMM (1.2-3.4); ABSOLUTE MONOCYTE COUNT 0.4 /CUMM (0.10-0.60); BASOPHIL % 0.6 % (0.0-2.0); EOSINOPHIL % 2.4 % (0-5); GRANULOCYTE % 52.9 % (42.2-75.2); HEMATOCRIT 25.4 % (37-47); MEAN CORPUSCULAR HGB 30.6 PG (27.0-31.0); MEAN CORPUSCULAR HGB CONC 33.6 G/DL (33.0-37.0); MEAN CORPUSCULAR VOLUME 91.1 FL (81.0-99.0); MEAN PLATELET VOLUME 7.7 FL (7.4-10.4); PLATELET COUNT 370 /CUMM (130-400); RBC DISTRIBUTION WIDTH 14.7 % (11.5-14.5); RED BLOOD CELL CT 2.79 /CUMM (4.20-5.40); WHITE BLOOD CELL COUNT 5.8 /CUMM (4.8-10.8)
--- NOTE | 2017-12-09 08:45 | PN- Housestaff ---
Gilmer Vidales 12/09/17 0838: Subjective Follow-up For: Epistaxis Subjective: Patient seen and examined in her bed. There was no overnight events. She had one episode of epistaxis which was started after picking on her nose. She did lose almost half teaspoon of blood. It subsided quickly by itself. She had 2 episode of bowel movement last night which was soft in consistency and no apparent blood.She is vittally She denies abdominal pain, chest pain, no palpitation, no burning micturition, no fever and chills. Review of Systems Constitutional: Reports: see HPI. Objective Last 24 Hrs of Vital Signs/I&O Vital Signs Date Time Temp Pulse Resp B/P B/P Pulse O2 O2 Flow FiO2 Mean Ox Delivery Rate 12/09 0749 76 114/70 12/09 0646 98.1 76 18 114/70 98 Room Air 12/08 2233 98.7 77 20 125/84 94 Room Air 12/08 2042 78 124/76 08 1934 96 Room Air 12/08 1527 98.4 74 20 128/78 94 Nasal Cannula 12/08 1044 Room Air Room Air 12/08 0845 72 130/84 Physical Exam General Appearance: Oriented X3, Cooperative, No Acute Distress Assessment/Plan Assessment: 52-year-old female with past medical history of hypertension, childhood intermittent nosebleed, no history of coagulopathy, asthma, fibroid status post hysterectomy, pandiverticulosis, internal hemorrhoids, she presented emergency department with nosebleed Problem list -Epistaxis -Anemia due to acute blood loss -Diarrhea due to cryptosporidium Plan: -Her Hb is 8.5g/L -Stool guac will be done today. -Vitally she is stable -She is plan to discharge home today -Antiprotozoal medication advise for her Cryptosporidium induced diarrhea. -Patient counseled when to take medication for diarrhea -Patient counseled if she needs any medical attention regarding epistaxis, diarrhea she should consult her primary care physician -Healthy diet is encouraged -She is full code -She feels okay to go home. Problem List: 1. Epistaxis Pain Ratin Pain Location: no pain Pain Goal: Remain pain free Pain Plan: no pain Tomorrow's Labs & Rationales: no labs Maude Jarquin 12/09/17 1106: Attending MD Review Statement Attending Statement Attending MD Statement: examined this patient, discuss w/resident/PA/ASSEMBLY CLEANER, agreed w/resident/PA/ASSEMBLY CLEANER, discussed with family, reviewed EMR data (avail), discussed with nursing, discussed with case mgmt, reviewed images, amended to note Attending Assessment/Plan: Patient with no more bleeding events. Her h/h remains stable. Hemodynamically stable. Patient is growing cryptosporidium in her stools with mild diarrhea and loss of appetite symptoms. Her anemia appears to be chronic with acute on chronic epsiode. Sudden drop of hematocrit without hemodynamic changes remain less suspicions of major bleed. Would consider abx course if symptoms worsen. She needs to follow up wit PCP and ENT after discharge. Educated patient to avoid nose picking. She is in agreement with plan.
--- NOTE | 2017-12-09 08:45 | PN- Student ---
Subjective Subjective: Hospital day 2: 52-year-old female with PMH of hypertension, childhood intermittent epitaxis, asthma, fibroid s/p hysterectomy with no period since, hemorrhoid [place] [address] Mahoney, presented to ED with epitaxis x 3 days and anemia with lab on admission of RBCs 2.92, Hg/Hct 8.7/25.9. Patient was interviewed and examined at bed side. Patient was much better today, more energetic, and coorporative. She stated that she had 3 episodes of soft stool overnight, 1 episode of mild nosebleed last night because she picked on her nose but resolved very quickly. Patient also complained of cramping abdominal pain when she defecated. Patient was trying to put on her nasal spray and stated that she did not like it much especially when it dropped down to her throat. Objective Objective: Physical exam: - Vital signs are stable: T: 98.1 // P: 76 // RR: 18 // BP: 114/70 // SpO2: 98% room air. - Patient is oriented to Time, Person and Place, coorporative, no acute distress. - HEENT: PERRLA, EOMI, no pallor, no lymphadenopathy. - Neck: small scar due to parathyroidectomy. - Heart: normal S1, S2, no additional murmur nor gallop. - Lungs: CTA bilaterally. - Abdomen: soft, non tender, no guariding, no rigidity. - Skin: warm, dry - Extremities: no clubbing, no cyanosis, no peripheral edema. - Neuro: 5/5 muscle strength bilaterally both extremities, no loss of sensation, no tingling nor numbness. Labs: - CBC showed trending up on RBC 2.79, Hb/Hct 8.5/25.4 at 6:30am today lab. - Stool culture: positive for Cryptosporidium Results Results: Laboratory Tests 12/09/17 0630: Anion Gap 4 L, Estimated GFR > 60, BUN/Creatinine Ratio 15.0, CBC w Diff NO MAN DIFF REQ, RBC 2.79 L, MCV 91.1, MCH 30.6, MCHC 33.6, RDW 14.7 H, MPV 7.7, Gran % 52.9, Lymphocytes % 37.4, Monocytes % 6.7, Eosinophils % 2.4, Basophils % 0.6, Absolute Granulocytes 3.1, Absolute Lymphocytes 2.2, Absolute Monocytes 0.4, Absolute Eosinophils 0.1, Absolute Basophils 0 12/08/17 1500: CBC w Diff NO MAN DIFF REQ, RBC 2.77 L, MCV 89.9, MCH 30.4, MCHC 33.9, RDW 14.8 H, MPV 7.9, Gran % 46.0, Lymphocytes % 45.1, Monocytes % 6.1, Eosinophils % 2.0 , Basophils % 0.8, Absolute Granulocytes 2.7, Absolute Lymphocytes 2.6, Absolute Monocytes 0.4, Absolute Eosinophils 0.1, Absolute Basophils 0 12/08/17 0713: Anion Gap 5, Estimated GFR > 60, BUN/Creatinine Ratio 20.0, CBC w Diff NO MAN DIFF REQ, RBC 2.68 L, MCV 89.6, MCH 30.4, MCHC 33.9, RDW 14.5, MPV 7.7, Gran % 44.7, Lymphocytes % 46.1, Monocytes % 5.9, Eosinophils % 2.8, Basophils % 0.5, Absolute Granulocytes 2.2, Absolute Lymphocytes 2.2, Absolute Monocytes 0.3, Absolute Eosinophils 0.1, Absolute Basophils 0 12/07/172035: Anion Gap 7, Estimated GFR > 60, BUN/Creatinine Ratio 26.7 H, Glucose 118 H, Calcium 9.4, Total Bilirubin 0.2, AST 19, ALT 33, Alkaline Phosphatase 56, Total Protein 5.8 L, Albumin 3.5, Globulin 2.3, Albumin/Globulin Ratio 1.5, TSH 1.700 , Free T4 0.73, PT 10.7, INR 0.98, APTT 31, CBC w Diff NO MAN DIFF REQ, RBC 2.92 L, MCV 89.0, MCH 29.7, MCHC 33.4, RDW 14.5, MPV 6.9 L, Gran % 49.8, Lymphocytes % 40.6, Monocytes % 7.3, Eosinophils % 2.0, Basophils % 0.3, Absolute Granulocytes 3.3, Absolute Lymphocytes 2.7, Absolute Monocytes 0.5, Absolute Eosinophils 0.1, Absolute Basophils 0 Microbiology 12/08 08 STOOL: Ova and Parasite Macroscopic Exam - CAN Cancelled: OE 12/08 810 STOOL: Stool Culture - RES 12/08 22 STOOL: Cryptosporidium Antigen - COMP 08/02 0023 STOOL: Giardia Antigen (KARMEN) - COMP Assessment/Plan Assessment: Summary: 52-year-old female with PMH of hypertension, childhood intermittent epitaxis, asthma, fibroid s/p hysterectomy with no period since, hemorrhoid [place] [address] Mahoney, presented to ED with epitaxis x 3 days and anemia. Lab showed trending up on her RBCs, Hb/Hct and positive stool culture for Cryptosporidium in which treatment was consulted with Dr. Sierra. 1. Epitaxis 2. Diarrhea secondary to Cryptosporidium: ID consulted with Dr. Lackey on tx 3. Anemia 4. Hypokalemia 5. Hypertension 6. Asthma Plan: Plan to discharge this morning. Patient go home with self-care. 1. Diarrhea due to Cryptosporidium: - Supportive treatment hydration with IVF. - GI PPx with Pantoprazole 40 mg IV daily. - Have patient follow up with her PCP post discharge if diarrhea is persistent and getting worse. - Prescribe a short course of Nitazoxanide at discharge if diarrhea persists. 2. Epitaxis: - Resolved. - Education patient not to pick her nose often. - Nasal spray used for nasal congestion. 3. Anemia: - RBC, Hb/Hct is trending up, improving; however not at ideal limit. - Have patient follow up with her PCP post discharge. 4. Hypokalemia: - Resolved. 5. Hypertension: - Continue Amplodipine 10mg po 6. Asthma: - Albuterol puffs/nebulizer prn DVT prophylaxis with Alps Regular diet IV access Code status: Full code.
[2017-12-09] MEDS ORDERED: ALINIA500 MG PO ×2 (09:33→11:09)
--- NOTE | 2017-12-09 10:57 | Patient Discharge Instructions ---
Discharge Instructions General Discharge Information You were seen/treated for: Nose bleeds Diarrhea Special Instructions: Please seek medical attention if your diarrhea persists Please seek medical attention if your nose bleed persist Take the medication for diarrhea only if your diarrhea worsens Acute Coronary Syndrome Inclusion Criteria At DC or during hospital stay patient has or had the following: ACS DIAGNOSIS No Discharge Core Measures Meds if any: Prescribed or Continued at Discharge Meds if any: NOT Prescribed or Continued at Discharge Congestive Heart Failure Inclusion Criteria At DC or during hospital stay patient has or had the following: CHF DIAGNOSIS No Discharge Core Measures Meds if any: Prescribed or Continued at Discharge Meds if any: NOT Prescribed or Continued at Discharge Cerebrovascular accident Inclusion Criteria At DC or during hospital stay patient has or had the following: CVA/TIA Diagnosis No Discharge Core Measures Meds if any: Prescribed or Continued at Discharge Meds if any: NOT Prescribed or Continued at Discharge Venous thromboembolism Inclusion Criteria VTE Diagnosis No VTE Type NONE VTE Confirmed by (Test) NONE Discharge Core Measures - Per Current guidelines, there needs to be overlap - treatment for the first 5 days of Warfarin therapy. - If discharged on Warfarin prior to 5 days of - overlap therapy, the patient will need to be - assessed for post discharge needs including - *Post discharge parental anticoagulation - *Warfarin and/or parental anticoagulation education - *Follow up date to check INR post discharge At least 5 days overlap therapy as Inpatient No Meds if any: Prescribed or Continued at Discharge Note: Overlap Therapy is Warfarin and Anticoagulant Meds if any: NOT Prescribed or Continued at Discharge
== END 2017-12-09 11:52 ==
LOC: ERH 19:48 → ERHI 23:34 → 2NB 23:34 → ENRESERV 12-08 00:29 → 2NB 12-08 00:57 → ENPENDDIS 12-09 09:24 → 2NB 12-09 11:52
PROVIDERS: Physician Assistant; Student in an Organized Health Care Education/Training Program
DX: D50.0 Iron deficiency anemia secondary to blood loss (chronic) (principal); R04.0 Epistaxis; A04.8 Other specified bacterial intestinal infections; I10 Essential (primary) hypertension; J45.909 Unspecified asthma, uncomplicated
CPT/HCPCS: 1263; 36415; 36592; 82436; 86902; 86920; 86922; 87015; 87045; 87328; 87329; 87899; 87899-59; 93005; 93010; 96374; 96376; G0378; J3490; J7060